=== PATIENT | female | born 1950 | race Caucasian/White ===

== ENCOUNTER 2022-05-20 10:08 | Outpatient (CLI) | payer MEDICARE, BC, SELFPAY ==
[2022-05-20 18:33] LABS: Albumin* 4.3 g/dL (3.3-5.0); Chloride* 100 mmol/L (96-114); Sodium* 137 mmol/L (135-149)
[2022-05-20 18:34] LABS: Potassium* 4.1 mmol/L (3.6-5.1)
[2022-05-20 18:35] LABS: Cholesterol* 184 mg/dL (90-199)
[2022-05-20 18:36] LABS: Alanine Aminotransferase* 16 U/L (4-35); Alkaline Phosphatase* 63 U/L (40-150); Aspartate Amino Transferase* 23 U/L (12-35); Bilirubin Total* 0.5 mg/dL (0.1-1.5); Blood Urea Nitrogen* 18 mg/dL (7-30); Calcium* 9.2 mg/dL (8.4-10.6); Carbon Dioxide* 29 mmol/L (20-32); Creatinine* 0.6 mg/dL (0.5-1.5); Estimated Glomerular Filt Rate 97 ml/min; Glucose* 95 mg/dL (60-115); Total Protein* 7.2 g/dL (6.0-8.3); Triglycerides* 171 mg/dL (40-149)
[2022-05-20 18:37] LABS: HDL Cholesterol* 60 mg/dL (>=50); LDL Cholesterol Calculated 90 mg/dL (<100)
== END 2022-05-20 10:09 | disposition home or self-care (01) ==
PROVIDERS: PCP Family Medicine; Visit Provider Family Medicine
DX: E78.5 Hyperlipidemia, unspecified (principal); D64.9 Anemia, unspecified; I48.91 Unspecified atrial fibrillation; M81.0 Age-related osteoporosis without current pathological fracture; C50.919 Malignant neoplasm of unspecified site of unspecified female breast; Z13.29 Encounter for screening for other suspected endocrine disorder
CPT/HCPCS: 80053; 80061; 84443

== ENCOUNTER 2022-05-28 13:35 | Outpatient (CLI) | payer MEDICARE, BC, SELFPAY ==
--- NOTE | 2022-05-28 14:00 | CRLHL7_ITS ---
For Patients: As a result of the Century Cures Act, medical imaging exams and procedure reports are released immediately into your electronic medical record. You may view this report before your referring provider. If you have questions, please contact your health care provider. DXA BONE MINERAL DENSITY STUDY Current height (in): 61.0. Weight (lb): 140.0. Menopause age: 57. Ethnicity: White. 1. Have you had a previous hip or vertebral fracture? No. 2. Have you had any fractures during your adult life which did not result from significant trauma (e.g., auto accident)? Yes. 3. Did either of your parents have a hip fracture? Yes. 4. Do you smoke? No. 5. Have you ever taken Glucocorticoids? No. 6. Do you have rheumatoid arthritis? No. 7. Do you have secondary osteoporosis? No. 8. Do you drink 3 or more alcoholic drinks per day? No. 9. Are you being treated for osteoporosis? Yes. 10. Have you ever taken any of the following medications: Actonel, Evista, Fosamax, Miacalcin, Reclast, Boniva, Forteo, HRT (i.e. estrogen/hormone therapy), Protelos, Prolia, Vitamin D, Calcium, other ??? please specify. ANSWER: Yes, Fosamax, vitamin D, HRT, calcium. 11. Do you have any of the following medical conditions: Anorexia or bulimia, asthma or emphysema, end stage renal disease, hyperparathyroidism, any seizure disorders, cancer, inflammatory bowel diseases, hysterectomy, other ??? please specify. ANSWER: Yes, cancer. 12. What was your maximum height (inches)? 61. 13. Do you perform weight bearing exercise regularly? No. 14. Do you regularly consume dairy products? Yes. 15. Do you drink caffeinated beverages? Yes. If female: 16. At what age did your period start? 16. 17. Are you premenopausal? No. 18. How many full term pregnancies have you had? 3. 19. Have you ever missed your period for more than 6 months in a row (not including or menopause)? No. TECHNIQUE: Bone mineral density study was performed using the [employer]. FINDINGS: The results of the study expressed as bone mineral density (BMD) are as follows: Lumbar spine L1 to L4: BMD: 0.918 g/cm2. T-score: -1.2. Z-score: 0.9. Neck Left: BMD: 0.666 g/cm2. T-score: -1.6. Z-score: 0.2. Right: BMD: 0.672 g/cm2. T-score: -1.6. Z-score: 0.2. Total Left: BMD: 0.708 g/cm2. T-score: -1.9. Z-score: -0.4. Right: BMD: 0.742 g/cm2. T-score: -1.6. Z-score: -0.1. IMPRESSION: Osteopenia. Bruno Tiwari M.D. Diagnostic Radiologist [email or web address] Transcribed: 10:19 am DW/Dictated by: Bruno Tiwari MD @ 05/29/2022 8:59:00 AM (Electronically Signed)
== END 2022-05-28 13:36 | disposition home or self-care (01) ==
LOC: RAD 13:37
PROVIDERS: PCP Family Medicine; Visit Provider Family Medicine
DX: M81.0 Age-related osteoporosis without current pathological fracture (principal)
CPT/HCPCS: 77080

== ENCOUNTER 2022-06-18 13:01 | Outpatient (RCR) | payer MEDICARE, BC, SELFPAY ==
--- NOTE | 2022-04-16 16:38 | ONC.NURNOTE ---
Message left for Dr. 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
== END 2022-12-15 23:59 | disposition home or self-care (01) ==
LOC: CCIC 13:01
PROVIDERS: PCP Family Medicine; Visit Provider Internal Medicine Hematology & Oncology
DX: C50.911 Malignant neoplasm of unspecified site of right female breast (principal); Z17.1 Estrogen receptor negative status [ER-]; G62.9 Polyneuropathy, unspecified; R23.2 Flushing; M85.80 Other specified disorders of bone density and structure, unspecified site
CPT/HCPCS: 99212; 99214

== ENCOUNTER 2022-08-08 12:41 | Outpatient (CLI) | payer MEDICARE, BC, SELFPAY | END 2022-08-08 12:42 | disposition home or self-care (01) | LOC: RAD 12:42 | PROVIDERS: PCP Family Medicine; Visit Provider Internal Medicine Cardiovascular Disease | DX: I48.91 Unspecified atrial fibrillation (principal); I51.7 Cardiomegaly; I07.1 Rheumatic tricuspid insufficiency | CPT/HCPCS: 93306 ==

== ENCOUNTER 2022-09-12 14:01 | Outpatient (CLI) | payer MEDICARE, BC, SELFPAY | END 2022-09-12 14:02 | disposition home or self-care (01) | PROVIDERS: PCP Family Medicine; Visit Provider Family Medicine | DX: R30.0 Dysuria (principal); R35.0 Frequency of micturition | CPT/HCPCS: 87086 ==

== ENCOUNTER 2022-12-31 09:53 | Outpatient (CLI) | payer MEDICARE, BC, SELFPAY ==
--- NOTE | 2022-12-31 10:15 | CRLHL7_ITS ---
For Patients: As a result of the Century Cures Act, medical imaging exams and procedure reports are released immediately into your electronic medical record. You may view this report before your referring provider. If you have questions, please contact your health care provider. INDICATION: LEFT axillary lump. History of RIGHT-sided breast cancer, status post RIGHT mastectomy and RIGHT right axillary lymph node dissection. Prophylactic LEFT mastectomy. TECHNIQUE: Directed LEFT axillary ultrasound with this radiologist present. COMPARISON: 10/02/2021. Correlation also is made with a chest CT 07/16/2021. FINDINGS: There approximately three mildly enlarged somewhat echogenic LEFT axillary lymph nodes very similar to 10/02/2021. These are likely diffusely fatty replaced lymph nodes as was identified on the chest CT 07/16/2021. The largest lymph node appears to measure 4.8 x 2.2 x 2.8 cm previously 5.1 x 1.9 x 2.5 cm. A second lymph node measures 1.7 x 1.2 x 1.3 cm previously 1.7 x 1.9 x 1.4 cm. A third lymph node measures 2.1 x 1.7 x 1.1 cm. The patient would favor additional imaging such as a chest CT for re-evaluation of the axillary lymph nodes given a reported new palpable abnormality felt by the patient and the patient`s clinician. This would be a reasonable course of action. IMPRESSION: 1. Mildly enlarged somewhat echogenic LEFT axillary lymph nodes similar to the prior ultrasound 10/02/2021. 2. Consider a repeat chest CT for confirmation and to further evaluate any palpable abnormality in the LEFT axilla. The patient strongly favors this approach. Dictated by Spencer Elizondo MD @ 12/31/2022 4:39:07 PM (Electronically Signed)
== END 2022-12-31 09:54 | disposition home or self-care (01) ==
LOC: US 09:54
PROVIDERS: PCP Family Medicine; Visit Provider Internal Medicine Hematology & Oncology
DX: C50.911 Malignant neoplasm of unspecified site of right female breast (principal); N64.59 Other signs and symptoms in breast; R22.32 Localized swelling, mass and lump, left upper limb
CPT/HCPCS: 76882

== ENCOUNTER 2023-01-08 08:29 | Outpatient (CLI) | payer MEDICARE, BC, SELFPAY ==
--- NOTE | 2023-01-08 09:00 | CRLHL7_ITS ---
For Patients: As a result of the Century Cures Act, medical imaging exams and procedure reports are released immediately into your electronic medical record. You may view this report before your referring provider. If you have questions, please contact your health care provider. Indication: BREAST CANCER. FOLLOW UP LYMPH NODE Technique: Post contrast CT chest. 75 cc Isovue 370 intravenous contrast. Please note that all CT scans at this facility use dose modulation, iterative reconstruction, and/or weight-based dosing when appropriate to reduce radiation dose to as low as reasonably achievable. Comparison: 07/16/2021 ET, 12/31/2022 ultrasound Findings: Calcified stone in the gallbladder again noted. Visualized thyroid normal. No mediastinal or hilar adenopathy. Small hiatal hernia. Normal fat filled axillary lymph nodes. Adrenal glands normal. Tortuosity of the aorta without dissection. No fracture or suspicious osseous lesion. Rightward curvature of the thoracic spine. Lungs are clear. No infiltrate or edema. No effusion or pneumothorax. No pulmonary nodule. Status post bilateral mastectomy. Impression: Normal fat filled axillary lymph nodes. No suspicious findings. Please note that all CT scans at this facility use dose modulation, iterative reconstruction, and/or weight-based dosing when appropriate to reduce radiation dose to as low as reasonably achievable. Dictated by Bruno Tiwari MD @ 01/10/2023 5:00:14 PM (Electronically Signed)
[2023-01-08 09:04] LABS: Creatinine* 0.7 mg/dL (0.5-1.5); Estimated Glomerular Filt Rate 93 ml/min
== END 2023-01-08 08:30 | disposition home or self-care (01) ==
LOC: CT 08:30
PROVIDERS: PCP Family Medicine; Visit Provider Internal Medicine Hematology & Oncology
DX: C50.919 Malignant neoplasm of unspecified site of unspecified female breast (principal)
CPT/HCPCS: 36415; 71260; 82565; Q9967

== ENCOUNTER 2023-06-15 10:20 | Outpatient (RCR) | payer MEDICARE, BC, SELFPAY ==
--- NOTE | 2023-01-19 11:00 | PC.NURSE ---
Pt called today to request a refill of her Gabapentin. Pt has ~2 weeks left and states that she has been calling every 3 months to request a refill. Brianna states that it is sent to a mail order pharmacy and there are no refills. Will communicate this request to Adriane Patterson APRN.
--- NOTE | 2023-01-22 13:40 | PC.NURSE ---
Gabapentin Clarification: RN called pt directly to inquire how she is taking her Gabapentin. Brianna shares that she is taking 1 tablet in the morning, 2 tablets at lunch, and 3 tablets at bedtime. She takes a total of 6 tablets daily.
== END 2023-06-20 23:59 | disposition home or self-care (01) ==
LOC: CCIC 10:20
PROVIDERS: PCP Family Medicine; Visit Provider Physician Assistant
DX: C50.911 Malignant neoplasm of unspecified site of right female breast (principal); Z17.1 Estrogen receptor negative status [ER-]; Z90.13 Acquired absence of bilateral breasts and nipples; G62.0 Drug-induced polyneuropathy; T45.1X5A Adverse effect of antineoplastic and immunosuppressive drugs, initial encounter; M81.0 Age-related osteoporosis without current pathological fracture; R23.2 Flushing
CPT/HCPCS: 99212; 99214; 99215

== ENCOUNTER 2023-06-19 11:06 | Outpatient (CLI) | payer MEDICARE, BC, SELFPAY | END 2023-06-19 11:07 | disposition home or self-care (01) | PROVIDERS: PCP Family Medicine; Visit Provider Family Medicine | DX: Z00.00 Encounter for general adult medical examination without abnormal findings (principal); E78.5 Hyperlipidemia, unspecified; I48.91 Unspecified atrial fibrillation; Z13.0 Encounter for screening for diseases of the blood and blood-forming organs and certain disorders involving the immune mechanism | CPT/HCPCS: 80053; 80061 ==

== ENCOUNTER 2023-07-09 07:43 | Outpatient (CLI) | payer MEDICARE, BC, SELFPAY ==
--- NOTE | 2023-07-09 09:13 | W.ANESCHARGE ---
Anesthesia Charges Start Date/Time Anesthesia Start Date: 07/09/23 Anesthesia Start Time: 08:41 Stop Date/Time Anesthesia Stop Date: 07/09/23 Anesthesia Stop Time: 09:14 Summary Extremes of Age - Over 70 or under 1: MDA
--- NOTE | 2023-07-09 09:20 | W.ANESCHARGE ---
Anesthesia Charges Start Date/Time Anesthesia Start Date: 07/09/23 Anesthesia Start Time: 08:41 Stop Date/Time Anesthesia Stop Date: 07/09/23 Anesthesia Stop Time: 09:14 Summary Extremes of Age - Over 70 or under 1: [employer]
== END 2023-07-09 07:44 | disposition home or self-care (01) ==
LOC: OP CLINIC 07:44
PROVIDERS: PCP Family Medicine; Visit Provider Surgery
DX: Z12.11 Encounter for screening for malignant neoplasm of colon (principal); K63.5 Polyp of colon; K64.8 Other hemorrhoids; K64.4 Residual hemorrhoidal skin tags; K57.30 Diverticulosis of large intestine without perforation or abscess without bleeding; Z86.010 Personal history of colon polyps
CPT/HCPCS: 00811; 45385; 88305; 99100; J2704

== ENCOUNTER 2024-04-11 11:10 | Outpatient (RCR) | payer MEDICARE, BC, SELFPAY | END 2024-06-11 23:59 | disposition home or self-care (01) | LOC: CCIC 11:10 | PROVIDERS: PCP Family Medicine; Visit Provider Internal Medicine Hematology & Oncology | DX: C50.911 Malignant neoplasm of unspecified site of right female breast (principal); Z17.1 Estrogen receptor negative status [ER-]; M81.0 Age-related osteoporosis without current pathological fracture; G62.0 Drug-induced polyneuropathy; T45.1X5A Adverse effect of antineoplastic and immunosuppressive drugs, initial encounter; I48.91 Unspecified atrial fibrillation; R59.1 Generalized enlarged lymph nodes; Z90.13 Acquired absence of bilateral breasts and nipples | CPT/HCPCS: 99214; 99215; G0463 ==

== ENCOUNTER 2024-04-25 08:48 | Outpatient (CLI) | payer MEDICARE, BC, SELFPAY ==
--- NOTE | 2024-04-25 09:15 | CRLHL7_ITS ---
For Patients: As a result of the Century Cures Act, medical imaging exams and procedure reports are released immediately into your electronic medical record. You may view this report before your referring provider. If you have questions, please contact your health care provider. Indication: generalized enlarged lymph nodes Technique: Grayscale and color Doppler ultrasound of the left axilla performed. Comparison: CT chest 04/05/2024, ultrasound 12/31/2022, 10/02/2021, 07/04/2021 Findings: Normal left axillary lymph nodes are present with morphology unchanged compared to the prior studies. Normal fatty joe noted without abnormal vascularity. Lymph nodes measure 4.9 x 2.0 x 2.7 cm, 1.7 x 1.1 x 1.5 cm and 1.8 x 1.4 x 1.6 cm, previously measuring 4.8 x 2.2 x 2.8 cm, 1.7 x 1.2 x 1.3 cm and 2.1 x 1.1 x 1.7 cm. Impression: Unchanged normal fat filled left axillary lymph nodes. Dictated by Bruno Tiwari MD @ 04/25/2024 11:00:24 AM (Electronically Signed)
== END 2024-04-25 08:49 | disposition home or self-care (01) ==
LOC: US 08:48
PROVIDERS: PCP Family Medicine; Visit Provider Physician Assistant
DX: R59.1 Generalized enlarged lymph nodes (principal); C50.919 Malignant neoplasm of unspecified site of unspecified female breast
CPT/HCPCS: 76882

== ENCOUNTER 2024-05-24 17:10 | Outpatient (CLI) | payer MEDICARE, BC, SELFPAY | END 2024-05-24 17:11 | disposition home or self-care (01) | LOC: NFLDREF 05-26 11:13 | PROVIDERS: PCP Family Medicine; Referring Provider Family Medicine; Visit Provider Nurse Practitioner Family | DX: R30.0 Dysuria (principal); N30.90 Cystitis, unspecified without hematuria | CPT/HCPCS: 87086 ==

== ENCOUNTER 2024-07-25 10:42 | Outpatient (RCR) | payer MEDICARE, BC, SELFPAY | END 2025-01-21 23:59 | disposition home or self-care (01) | LOC: CCIC 10:42 | PROVIDERS: PCP Family Medicine; Visit Provider Internal Medicine Hematology & Oncology | DX: C50.911 Malignant neoplasm of unspecified site of right female breast (principal); Z17.1 Estrogen receptor negative status [ER-]; M81.0 Age-related osteoporosis without current pathological fracture; G62.0 Drug-induced polyneuropathy; T45.1X5D Adverse effect of antineoplastic and immunosuppressive drugs, subsequent encounter; R59.1 Generalized enlarged lymph nodes; Z90.13 Acquired absence of bilateral breasts and nipples | CPT/HCPCS: 99214; 99215; G0463 ==

== ENCOUNTER 2024-08-15 13:50 | Outpatient (CLI) | payer MEDICARE, BC, SELFPAY | END 2024-08-15 13:51 | disposition home or self-care (01) | PROVIDERS: PCP Family Medicine; Visit Provider Family Medicine | DX: E78.5 Hyperlipidemia, unspecified (principal); M81.0 Age-related osteoporosis without current pathological fracture; Z13.29 Encounter for screening for other suspected endocrine disorder | CPT/HCPCS: 80053; 80061; 84443 ==

== ENCOUNTER 2024-12-01 14:48 | Outpatient (CLI) | payer MEDICARE, BC, SELFPAY | END 2024-12-01 14:49 | disposition home or self-care (01) | LOC: RAD 14:49 | PROVIDERS: PCP Family Medicine; Visit Provider Internal Medicine | DX: I48.91 Unspecified atrial fibrillation (principal); I51.7 Cardiomegaly; I07.1 Rheumatic tricuspid insufficiency | CPT/HCPCS: 93306 ==

== ENCOUNTER 2025-02-07 20:02 | Outpatient (CLI) | payer MEDICARE, BC, SELFPAY ==
--- NOTE | 2025-03-07 09:52 | W.PM.SLEEP ---
Sleep Study Details Details Interpreting Provider: Zachariah Date of Sleep Study: 02/07/25 Sleep Study Details: STUDY TYPE:? Hospital-based, attended, CPAP titration ? BMI:? 26.7 ORDERING PROVIDER:? Julio INDICATION:? Concern about sleep apnea ? SLEEP SUMMARY:? 261 minutes total sleep time RESPIRATORY SUMMARY:? Mean oxygen awake 95, asleep 92, minimum 79. 46 minutes oxygen between 80 and 88% AHI per CMS guideline 39.8. Note that the majority of the study was done in the supine position. No REM stage sleep was seen during the diagnostic portion of the study CPAP titration was performed to a pressure of 6 decreasing AHI to 0.4 including 31.5 minutes of supine REM sleep. This appeared to be a successful titration PERIODIC LIMB MOVEMENTS OF SLEEP:? None CARDIAC:? Awake 87 asleep 82. AFib was noted. No other arrhythmias were noted. IMPRESSION:? Severe obstructive sleep apnea with successful CPAP titration to a pressure of 6 which included supine REM stage sleep and eliminated majority of apneas. AFib was noted RECOMMENDATION: Initiate CPAP AutoSet pressure 6-15.
== END 2025-02-07 20:03 | disposition home or self-care (01) ==
LOC: SLEEP 20:02
PROVIDERS: PCP Family Medicine; Visit Provider Internal Medicine
DX: G47.33 Obstructive sleep apnea (adult) (pediatric) (principal); R09.02 Hypoxemia
CPT/HCPCS: 95811; A9270

== ENCOUNTER 2025-06-28 12:44 | Outpatient (CLI) | payer MEDICARE, BC, SELFPAY ==
--- NOTE | 2025-06-28 13:00 | CRLHL7_ITS ---
For Patients: As a result of the 21st Century Cures Act, medical imaging exams and procedure reports are released immediately into your electronic medical record. You may view this report before your referring provider. If you have questions, please contact your health care provider. EXAM: MRI OF THE RIGHT SHOULDER WITHOUT AND WITH IV CONTRAST CLINICAL INDICATION: Right shoulder pain. History of right breast carcinoma. COMPARISON PLAIN FILMS: None available at time of interpretation. COMPARISON CROSS-SECTIONAL IMAGING STUDIES: 01/08/2023 CT chest. TECHNICAL: Axial, sagittal oblique and coronal oblique T1, PD, PD FS and T2-weighted images precontrast. Postcontrast T1 weighted imaging with fat saturation. Contrast: Dotarem, 15 mL IV. Shoulder surface coil. FINDINGS: SOFT TISSUES: No subcutaneous mass or adenopathy. OSSEOUS STRUCTURES: No osseous lesion to suggest a metastasis. No evidence for avascular necrosis. No marrow infiltrative process. ROTATOR CUFF TENDONS AND MUSCLES AND DELTOID: Supraspinatus: Diffuse increased signal in the supraspinatus tendon consistent with [id number] tendinopathy. No tendon tear. No muscle atrophy or edema. Infraspinatus: 0.6 cm ovoid calcification in the distal infraspinatus tendon with adjacent edema. Findings consistent with calcium hydroxyapatite deposition and tendinitis. No tendon tear. No muscle atrophy or edema. Subscapularis: Multiple ovoid calcifications in the distal aspect of the subscapularis tendon. No adjacent edema. Findings consistent with calcium hydroxyapatite deposition without adjacent inflammation. No tendon tear. No muscle atrophy or edema. Teres Minor: No tendinosis, tendon tearing, muscle atrophy or muscle edema. Deltoid: No muscle atrophy or edema. BURSA: Subacromial-subdeltoid: No abnormal bursal edema, thickening or bursal fluid. BICEPS TENDON, LONG HEAD: The long head of the biceps tendon is appropriately positioned within the bicipital groove without tendon subluxation or dislocation. The biceps rasheed mechanism is intact. The biceps anchor appears grossly intact. There is no significant tendinosis or tendon tearing. CORACOACROMIAL ARCH: Acromial Morphology: Type 1 acromial morphology. No abnormal lateral or anterior downward sloping of the acromion. No significant subacromial spur. No os acromiale. Acromiohumeral Interval: Normal. Coracohumeral Interval: Normal. ACROMIOCLAVICULAR JOINT REGION: AC Joint: Resection or resorption of the distal clavicle. No inferior marginal osteophytes. Ligaments: The coracoclavicular ligaments are intact. GLENOHUMERAL JOINT: Joint space: No effusion or synovitis. Humeral Head Articular Cartilage: No focal cartilage defect or underlying subchondral marrow changes. Glenoid Articular Cartilage: No focal cartilage defect or underlying subchondral marrow changes. Labrum: No labral tear or paralabral cyst. Alignment: Maintained. Capsule: No capsular edema or abnormal capsular thickening. IMPRESSION: 1. 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 2. Supraspinatus tendinopathy. 3. Resection or resorption of the distal clavicle. 4. No findings to suggest metastases. Dictated by Ramón Ribeiro MD @ 06/29/2025 12:03:17 PM (Electronically Signed)
== END 2025-06-28 12:45 | disposition home or self-care (01) ==
LOC: MRI 12:45
PROVIDERS: PCP Family Medicine; Visit Provider Internal Medicine Hematology & Oncology
DX: M25.511 Pain in right shoulder (principal); M75.101 Unspecified rotator cuff tear or rupture of right shoulder, not specified as traumatic; C50.919 Malignant neoplasm of unspecified site of unspecified female breast
CPT/HCPCS: 73223; A9575